=== PATIENT | male | born 1995 | race Two or more races ===

== ENCOUNTER 2022-11-01 09:31 | Emergency (ER) | payer OTHER ==
[~2022-11-01] VITALS: Ht 167.6 cm; Wt 61.2 kg
[~2022-11-01 09:31] MED LIST: PEPCID20 MG PO
== END 2022-11-01 12:23 | disposition home or self-care (01) ==
LOC: ER 09:31
DX: S01.01XA Laceration without foreign body of scalp, initial encounter (principal); W22.8XXA Striking against or struck by other objects, initial encounter; Y93.9 Activity, unspecified; Y92.9 Unspecified place or not applicable; Y99.9 Unspecified external cause status

== ENCOUNTER 2022-11-10 08:57 | Emergency (ER) | payer OTHER ==
[~2022-11-10] VITALS: Ht 167.6 cm; Wt 61.2 kg
== END 2022-11-10 10:50 | disposition home or self-care (01) ==
LOC: ER 08:58
DX: Z48.02 Encounter for removal of sutures (principal)